=== PATIENT | male | born 1950 | race Caucasian/White ===

== ENCOUNTER 2022-07-24 06:41 | Day surgery (SDC) | payer MEDICARE, OTHER ==
[~2022-07-24 06:41] MED LIST: Lactated Ringers 1,000 ML IV SCH; Lidocaine 1%/Sod Bicarbonate in NS 8.4% 1 ML Syringe IDERM PRN; Morphine 8 MG, EPINEPHrine 0.3 MG, Cefuroxime 750 MG, Ketorolac 30 MG, Sodium Chloride ... PRN; Sodium Chloride 0.9% 10 ML Syringe FLUSH PRN; Sodium Chloride 0.9% 10 ML Syringe FLUSH SCH
[2022-07-24] MEDS ORDERED: Lidocaine 1% 4 ML ONE (07:48)
[2022-07-24] MEDS ORDERED: Propofol 200 MG/20 ML SDV ONE ×3 (07:48→09:49)
[2022-07-24] MEDS ORDERED: Midazolam 1 MG/ML 2 ML SDV ONE (07:49)
[2022-07-24] MEDS ORDERED: Ropivacaine 0.5% 5 MG/ML 30 ML SDV ONE (08:08)
[2022-07-24] MEDS ORDERED: EPINEPHrine 1 MG/ML SDV ONE (08:08)
[2022-07-24] MEDS ORDERED: Lactated Ringers 1,000 ML ONE ×2 (08:55→10:18)
[2022-07-24] MEDS ORDERED: ceFAZolin 2 GM Vial ONE (09:09)
[2022-07-24] MEDS ORDERED: Ketamine 500 mg/10 ML MDV ONE (09:13)
[2022-07-24] MEDS ORDERED: Acetaminophen/HYDROcodone 325-5 MG Tab PO PRN (10:05)
[2022-07-24] MEDS: Vancomycin 1 GM SDV ONE ×2 (10:11→10:18)
[2022-07-24] MEDS: Morphine 8 MG, EPINEPHrine 0.3 MG, Cefuroxime 750 MG, Ketorolac 30 MG, Sodium Chloride ... PRN ×10 (10:12→10:13)
[2022-07-24] MEDS ORDERED: Ondansetron 4 MG/2 ML SDV ONE (10:15)
[2022-07-24] MEDS ORDERED: Ketorolac 30 MG/ML SDV ONE (10:18)
[2022-07-24] MEDS ORDERED: HYDROmorphone 0.5 MG/0.5 ML Syringe IVPUSH PRN (10:50)
[2022-07-24] MEDS ORDERED: Ondansetron 4 MG/2 ML SDV IVPUSH PRN (10:50)
[2022-07-24] MEDS ORDERED: fentaNYL 100 MCG/2 ML SDV IVPUSH PRN (10:50)
== END 2022-07-24 14:30 | disposition home or self-care (01) ==
LOC: JD.SDS 06:41
PROVIDERS: ATTEND Orthopaedic Surgery
DX: M17.12 Unilateral primary osteoarthritis, left knee (principal); I48.91 Unspecified atrial fibrillation; I10 Essential (primary) hypertension; E61.1 Iron deficiency; E11.51 Type 2 diabetes mellitus with diabetic peripheral angiopathy without gangrene; F41.9 Anxiety disorder, unspecified; G25.81 Restless legs syndrome; Z79.899 Other long term (current) drug therapy; Z79.84 Long term (current) use of oral hypoglycemic drugs; Z88.1 Allergy status to other antibiotic agents; Z91.018 Allergy to other foods; Z88.5 Allergy status to narcotic agent; Z98.890 Other specified postprocedural states
CPT/HCPCS: 0055T; 27447; 36415; 73560; 80048; 82947; 85610; 85730; 97110; 97116; 97161; A9270; C1713; C1776; J0171; J0690; J0697; J1885; J2250; J2270; J2405; J2704; J2795; J3370; J3490; J7120; 01402; 64450; 76942; 99100

== ENCOUNTER 2022-10-14 11:32 | Emergency (ER) | payer MEDICARE, OTHER ==
[2022-10-14] MEDS ORDERED: Acetaminophen/HYDROcodone 325-5 MG Tab PO ONE (12:00)
== END 2022-10-14 13:45 | disposition home or self-care (01) ==
LOC: JD.ED 11:32
DX: M97.12XA Periprosthetic fracture around internal prosthetic left knee joint, initial encounter (principal); I10 Essential (primary) hypertension; E11.9 Type 2 diabetes mellitus without complications; Z88.5 Allergy status to narcotic agent; Z88.0 Allergy status to penicillin; Z91.012 Allergy to eggs; Z79.84 Long term (current) use of oral hypoglycemic drugs; Z79.899 Other long term (current) drug therapy
CPT/HCPCS: 73560; 99283; A9270

== ENCOUNTER 2022-10-17 08:30 | Inpatient (IN) | payer MEDICARE, OTHER ==
[~2022-10-17 08:30] MED LIST changes: -Morphine 8 MG, EPINEPHrine 0.3 MG, Cefuroxime 750 MG, Ketorolac 30 MG, Sodium Chloride ... PRN; -Sodium Chloride 0.9% 10 ML Syringe FLUSH SCH
[2022-10-17 09:32] LABS: ESTIMATED GFR 95 mL/min (>60)
[2022-10-17] MEDS ORDERED: Famotidine 20 MG/2 ML SDV IVPUSH SCH (09:44)
[2022-10-17] MEDS ORDERED: Citric Acid/Sodium Citrate Solution 30 ML Cup PO SCH (09:44)
[2022-10-17] MEDS ORDERED: Lidocaine 1% 5 ML VIAL ONE (10:20)
[2022-10-17] MEDS ORDERED: Propofol 200 MG/20 ML SDV ONE ×7 (10:22→14:01)
[2022-10-17] MEDS ORDERED: Midazolam 1 MG/ML 2 ML SDV ONE (10:32)
[2022-10-17] MEDS ORDERED: Bupivacaine 0.25% 10 ML SDV ONE (10:35)
[2022-10-17] MEDS ORDERED: Phenylephrine HCl In 0.9% NaCl 1 MG/10 ML Vial ONE (11:00)
[2022-10-17] MEDS ORDERED: ceFAZolin 2 GM Vial ONE (11:33)
[2022-10-17] MEDS ORDERED: Phenylephrine 1% 10 MG/ML SDV ONE (11:51)
[2022-10-17] MEDS ORDERED: fentaNYL 100 MCG/2 ML SDV ONE (13:37)
[2022-10-17] MEDS ORDERED: Ketamine 500 mg/10 ML MDV ONE (13:43)
[2022-10-17] MEDS ORDERED: Ondansetron 4 MG/2 ML SDV ONE (13:45)
[2022-10-17] MEDS ORDERED: Lactated Ringers 1,000 ML ONE ×2 (13:50)
[2022-10-17] MEDS ORDERED: Ropivacaine 0.5% 5 MG/ML 30 ML SDV ONE (14:33)
[2022-10-17] MEDS ORDERED: EPINEPHrine 1 MG/ML SDV ONE (14:34)
[2022-10-17] MEDS ORDERED: Ondansetron 4 MG/2 ML SDV IVPUSH PRN (18:06)
[2022-10-17] MEDS ORDERED: Bisacodyl 5 MG Tab PO PRN (18:06)
[2022-10-17] MEDS ORDERED: Naloxone 0.4 MG/ML SDV IVPUSH PRN (18:06)
[2022-10-17] MEDS ORDERED: Labetalol 100 MG/20 ML MDV IVPUSH ONE ×2 (18:06→19:19)
[2022-10-17] MEDS: Acetaminophen/HYDROcodone 325-5 MG Tab PO PRN (18:15)
[2022-10-17] MEDS ORDERED: Sodium Chloride 0.9% 1,000 ML IV SCH (19:15)
[2022-10-17] MEDS: ALPRAZolam 0.25 MG Tab PO SCH (20:54)
[2022-10-17] MEDS: Cyclobenzaprine 10 MG Tab PO PRN (20:54)
[2022-10-17] MEDS: Labetalol 100 MG Tab PO SCH (20:55)
[2022-10-17] MEDS ORDERED: Pramipexole 0.25 MG Tab PO SCH (21:00)
[2022-10-17] MEDS ORDERED: Labetalol 100 MG Tab PO SCH (21:00)
[2022-10-17] MEDS ORDERED: LORazepam 2 MG/ML SDV IVPUSH ONE (22:50)
[2022-10-18] MEDS: Acetaminophen/HYDROcodone 325-5 MG Tab PO PRN ×4 (03:27→17:48)
[2022-10-18] MEDS: Sodium Chloride 0.9% 10 ML Syringe FLUSH SCH (03:57)
[2022-10-18] MEDS: Ferrous Sulfate 324 MG Tab.EC PO SCH (09:20)
[2022-10-18] MEDS: DULoxetine 30 MG Cap PO SCH (09:20)
[2022-10-18] MEDS: metFORMIN 500 MG Tab PO SCH (09:21)
[2022-10-18] MEDS: Labetalol 100 MG Tab PO SCH ×2 (09:21→20:23)
[2022-10-18] MEDS: glipiZIDE 5 MG Tab.ER PO SCH (09:21)
[2022-10-18] MEDS: Enoxaparin 40 MG/0.4 ML Syringe SUBCUT SCH (09:25)
[2022-10-18] MEDS: Cyclobenzaprine 10 MG Tab PO PRN (11:45)
[2022-10-18] MEDS: Sennosides 8.6 MG Tab PO PRN (13:58)
[2022-10-18] MEDS: Docusate Sodium 100 MG Cap PO PRN (13:58)
[2022-10-18] MEDS ORDERED: metFORMIN 500 MG Tab PO SCH (18:00)
[2022-10-18] MEDS: ALPRAZolam 0.25 MG Tab PO SCH (20:23)
[2022-10-18] MEDS ORDERED: Pramipexole 0.5 MG Tab PO SCH (21:00)
[2022-10-19] MEDS: Acetaminophen/HYDROcodone 325-5 MG Tab PO PRN ×2 (04:08→08:25)
[2022-10-19] MEDS: Sennosides 8.6 MG Tab PO PRN (04:09)
[2022-10-19] MEDS: Docusate Sodium 100 MG Cap PO PRN (04:09)
[2022-10-19] MEDS: Enoxaparin 40 MG/0.4 ML Syringe SUBCUT SCH (08:22)
[2022-10-19] MEDS: Labetalol 100 MG Tab PO SCH (08:23)
[2022-10-19] MEDS: metFORMIN 500 MG Tab PO SCH (08:23)
[2022-10-19] MEDS: glipiZIDE 5 MG Tab.ER PO SCH (08:23)
[2022-10-19] MEDS: Ferrous Sulfate 324 MG Tab.EC PO SCH (08:25)
[2022-10-19] MEDS: DULoxetine 30 MG Cap PO SCH (08:26)
== END 2022-10-19 13:02 | disposition home or self-care (01) | DRG 480 ==
LOC: JD.SDS 08:30 → JD.MS 17:03 → JD.SDS 18:06 → OBSVTOIN 10-18 12:02 → JD.MS 10-18 18:18
PROVIDERS: ADMIT Orthopaedic Surgery; ATTEND Orthopaedic Surgery
PROC: 0QS904Z Reposition Left Femoral Shaft with Internal Fixation Device, Open Approach (ICD-10-PCS; principal; 2022-10-17)
DX: S72.302A Unspecified fracture of shaft of left femur, initial encounter for closed fracture (principal); G92.8 Other toxic encephalopathy; I16.0 Hypertensive urgency; T41.45XA Adverse effect of unspecified anesthetic, initial encounter; F41.9 Anxiety disorder, unspecified; D64.9 Anemia, unspecified; E11.9 Type 2 diabetes mellitus without complications; I10 Essential (primary) hypertension; M54.9 Dorsalgia, unspecified; M19.90 Unspecified osteoarthritis, unspecified site; Z96.652 Presence of left artificial knee joint; G25.81 Restless legs syndrome; Z88.0 Allergy status to penicillin; Z91.012 Allergy to eggs; Z88.5 Allergy status to narcotic agent; Z79.84 Long term (current) use of oral hypoglycemic drugs; Z79.899 Other long term (current) drug therapy
CPT/HCPCS: 01230; 36415; 64448; 73552-26-LT; 73552-LT; 76000; 76000-26; 76942; 80048; 80053; 82947; 84443; 85025; 85027; 87641; 93005; 96372; 96374; 96375; 96376; 97116-GP; 97161-GP; A9270-GY; C1713; G0378; J0171; J0690; J1650; J2060; J2250; J2370; J2405; J2704; J2795; J3010; J3490; J7030; J7120